=== PATIENT | male | born 1960 | race Caucasian/White ===

== ENCOUNTER 2016-09-04 09:23 | Day surgery (SDC) | payer BC ==
[2016-08-30 11:07] LABS: BASOPHILS 0.5 %; BASOPHILS ABSOLUTE 0.06 10/3/uL (0.0-0.16); EOSINOPHILS ABSOLUTE 0.39 10/3/uL (0.0-0.53); IMMATURE GRANULOCYTES 0.6 %; IMMATURE GRANULOCYTES ABSOLUTE 0.08 10/3/uL (0.0-0.11); LYMPHOCYTES 12.3 %; LYMPHOCYTES ABSOLUTE 1.59 10/3/uL (0.67-4.30); MEAN CORPUS HGB CONC 32.1 g/dL (32.0-36.0); MEAN CORPUSCULAR HEMOGLOB 27.5 pg (26.0-34.0); MEAN PLATELET VOLUME 8.7 fL (9.2-13.0); MONOCYTES 5.6 %; MONOCYTES ABSOLUTE 0.72 10/3/uL (0.21-1.20); NEUTROPHILS ABSOLUTE 10.05 10/3/uL (2.02-8.40); PLATELET COUNT 447 10/3/uL (150-400); RBC DISTRIBUTION WIDTH 14.4 % (12.0-16.0); WHITE BLOOD CELLS 12.9 10/3/uL (4.5-10.5)
[2016-08-30 11:08] LABS: HEMATOCRIT 38.3 % (40.0-51.0); HEMOGLOBIN 12.3 g/dL (13.6-17.8); MANUAL DIFF NO %; MEAN CORPUSCULAR VOLUME 85.5 fL (80-100); RED CELL COUNT 4.48 10/6/uL (4.7-6.1)
[2016-08-30 11:14] LABS: INTERNATIONAL NORMAL RATI 1.1 UNITS (-); PROTIME (NOT ORD) 13.6 SEC (12.0-14.5)
[2016-08-30 11:43] LABS: CALCIUM, SERUM 9.4 MG/DL (8.5-10.4); CHLORIDE, SERUM 107 MMOL/L (96-112); CO2 (CARBON DIOXIDE) 25 MMOL/L (24-34); POTASSIUM, SERUM 4.1 MMOL/L (3.5-5.3); SGOT(AST) 13 U/L (5-40); SGPT(ALT) 21 U/L (5-65); SODIUM, SERUM 144 MMOL/L (135-148); TOTAL BILIRUBIN 0.2 MG/DL (0-1.2); TOTAL PROTEIN 7.8 G/DL (6.0-8.5)
[2016-08-30 11:44] LABS: ALBUMIN 3.8 G/DL (3.5-5.0); ALKALINE PHOSPHATASE 127 U/L (45-117); BUN (BLOOD UREA NITROGEN) 16 MG/DL (6-23); CREATININE 1.03 MG/DL (0.70-1.30); GFR AFRICAN AMERICAN 95 ML/MIN (>=60); GFR NON AFRICAN AMERICAN 82 ML/MIN (>=60); GLUCOSE, SERUM 88 MG/DL (60-99)
[2016-08-30 11:59] LABS: ASCORBIC ACID (UR NOT ORDER) 40 (NEG); BILIRUBIN, URINE NEGATIVE (NEG); KETONE, URINE NEGATIVE (NEG); LEUKOCYTE ESTERASE(NOT OR NEG (NEG); WBC (NOT ORDERED) (RFLEX) 4 (0-5)
--- NOTE | ~2016-09-04 | OP ---
Record Of Operation [facility] [address] [place]. [address] NAME: DIPESH VILLAGRAN JR : 64 STATUS : REG [facility] [place] PAT#: [id number] AGE: 56 ADM/REG DATE : 09/04/16 MR#: [id number] REPORT SERV DATE: 09/04/16 DICTATED BY: DIPESH NG JR. DATE: 09/04/16 REPORT STATUS : Draft TRANSCRIBED BY: MODHarrison DATE: 09/04/16 DATE OF PROCEDURE: 09/04/2016 PREOPERATIVE DIAGNOSES: Lung cancer status post right pneumonectomy, postoperative myocardial infarction with percutaneous catheter intervention, bronchopleural fistula, status post Eloesser flap, persistent coughing. POSTOPERATIVE DIAGNOSES: Lung cancer status post right pneumonectomy, postoperative myocardial infarction with percutaneous catheter intervention, bronchopleural fistula, status post Eloesser flap, persistent coughing. NAME OF OPERATION: Diagnostic and therapeutic bronchoscopy, bronchioalveolar lavage, left lung and right bronchial stump, redo right thoracoscopy with revision of Eloesser flap. SURGEON: Dipesh Ng M.D. RESIDENT SURGEON: Dr. Kevin Miguel. TITLE VEHICLE SERVICE ATTENDANT: Herman Ann. ANESTHESIA: General endotracheal. FINDINGS: The patient was noted on bronchoscopy to have mild granulation tissue forming in the anterior airway where his previous tracheostomy site was. There was narrowing of his airway about 10%. There were some thick mucous secretions in the airway but much less than expected. The bronchial stump actually looked much better than expected. There was only a very tiny opening. Did not appear to communicate with anything. There were sutures visualized in the lateral right tracheal wall along with some clot or debris in that area. This was lavaged and sent for cultures. Exploration of the right chest showed a very minimal residual space in his right chest. There was a small tract from the Eloesser flap going to where the bronchopleural fistula resides but had no pus or contamination. There was a lot of granulation tissue that had been formed in this area. Granulation tissue was opened and the Eloesser flap was enlarged. There was no evidence of cancer. DETAILS OF OPERATION: After adequate general anesthesia, the patient was intubated. Bronchoscopy was performed noting the above findings. Bronchioalveolar lavage was performed. Mucous secretions were evacuated. It was felt the granulation tissue and the previous trach site was minimal and is best left alone. It was not causing any airway obstruction. The patient was then positioned in the supine position with the right chest elevated. The right chest was prepped and draped. Eloesser flap was probed and explored with the scope. We achieved just a very minimal track or distance to the flap. Most of the right chest base had been obliterated from the mediastinal shift and muscle flaps. There was no residual pus or infection that could be found in this area. There was a lot of granulation tissue that had formed. This was excised with electrocautery. The track without Eloesser flap looked very clean with no obvious gross contamination. The granulation tissue was excised with electrocautery. Hemostasis was obtained. Actual Record Of Operation [address] [address] NAME: TYSHAWNDIPESH REMY JR : 64 STATUS : REG [facility] [place] PAT#: [id number] AGE: 56 ADM/REG DATE : 09/04/16 MR#: [id number] REPORT SERV DATE: 09/04/16 DICTATED BY: DIPESH NG JR. DATE: 09/04/16 REPORT STATUS : Draft TRANSCRIBED BY: RANDAL DATE: 09/04/16 opening was enlarged. After obtaining adequate hemostasis, airway was thoroughly irrigated. We made the decision to stop at this point. The procedure was terminated. Sterile dressing was applied. The patient tolerated the procedure well and taken back to the recovery room in stable condition. MIGDALIA/RANDAL Dipesh Ng Jr., M.D. / [id number] CC: Aubrey Flynn Jr., DO
[~2016-09-04 09:23] MED LIST: ATV.5 PO; B1100 PO; BYSTOLIC10 MG PO; CELEXA20 PO; CELEXA40 MG PO; CHEMOTHERAPY IV; COMP10B PO; DEX4 PO; IBU-200200 MG PO; KDUR20 PO; LEVAQUIN750 MG PO; MEG40 PO; METHOC500B PO; MIRALAXPKT PO; MIRAPEX250 PO; MSCONT15 PO; MSCONTIN PO; MULTIPLE VIT PO; NEUR100 PO; NEUR300 PO; NORCO1 TAB PO; PCET PO; PLAVIX PO; PR25 PO; PRILO PO; PRILOSEC OTC20 MG PO; PROAIR HFA INH; PROAIR HFA PO; ROXICODONE15 MG PO; SPIRIVA INH; SPIRIVA RESPIMAT INH; SUPER B COMP OR; SYMBICORT 160/41 INH INH; VENTOLIN HFA INH; VITAMIN B-625 MG PO; ZOFRAN8 PO; [UNRECOGNIZED DRUG - OTHER] SC; [UNRECOGNIZED DRUG - REMARK] TOP
[2017-03-14] MEDS ORDERED: NEUR300 PO (11:04)
[2017-03-14] MEDS ORDERED: DIL2TAB PO (11:04)
[2017-03-14] MEDS ORDERED: METHATAB5B PO (11:05)
== END 2016-09-04 18:32 | disposition home or self-care (01) ==
LOC: SDC 09:23
PROVIDERS: Thoracic Surgery (Cardiothoracic Vascular Surgery)
PROC: 0B978ZX Drainage of Left Main Bronchus, Via Natural or Artificial Opening Endoscopic, Diagnostic (ICD-10-PCS; principal; 2016-09-04 11:15)
DX: C34.91 Malignant neoplasm of unspecified part of right bronchus or lung (principal); I25.10 Atherosclerotic heart disease of native coronary artery without angina pectoris; I10 Essential (primary) hypertension; I25.2 Old myocardial infarction; J44.9 Chronic obstructive pulmonary disease, unspecified; K21.9 Gastro-esophageal reflux disease without esophagitis; F17.210 Nicotine dependence, cigarettes, uncomplicated; F41.9 Anxiety disorder, unspecified; Z90.2 Acquired absence of lung [part of]; Z98.1 Arthrodesis status; Z87.442 Personal history of urinary calculi; Z95.5 Presence of coronary angioplasty implant and graft; Z79.02 Long term (current) use of antithrombotics/antiplatelets; Z79.899 Other long term (current) drug therapy; Z98.890 Other specified postprocedural states
CPT/HCPCS: 36415; 71010; 80053; 81001; 83036; 85025; 85610; 86850; 86900; 86901; 87015; 87070; 87075; 87077; 87102; 87116; 87186; 87205; 87641; 93005; A9270-GY; C1751; J0690; J1170; J2250; J2370; J2405; J3010